=== PATIENT | female | born 1965 | race Caucasian/White ===

== ENCOUNTER 2018-08-29 12:55 | Emergency (ER) | payer BC ==
--- OUTSIDE RECORDS SUMMARY | 2018-08-29 12:58 | XMS REPORT ---
:1965 Author Organization eClinicalWorks Care Team Providers Name Role Phone Amaro Dean Provider Role Unavailable Allergies, Adverse Reactions, Alerts Substance Reaction Event Type Latex Info Not Available Drug Allergy penicillin Info Not Available Drug Allergy Sulfa Info Not Available Drug Allergy Problems Problem Type Condition Code Onset Dates Condition Status Problem Sprain of left rotator cuff S43.422A Active capsule, initial encounter Problem Pain, joint, shoulder, left M25.512 Active Problem Impingement syndrome of left M75.42 Active shoulder Assessment Sprain of left rotator cuff S43.422A Active capsule, initial encounter Assessment Impingement syndrome of left M75.42 Active shoulder Assessment Pain, joint, shoulder, left M25.512 Active Medications Medication Code Code Instructions Start End Status Dosage System Date Date Duloxetine HCl ND 94626270096 30 MG Oral Active TK 1 C PO BID ProAir HFA ND 63306169729 108 (90 Base) Active INL 2 PFS PO MCG/ACT Q 4 TO 6 H Inhalation PRN Fluocinolone ND 14505718798 0.01 % External Active BISHNU EXT TO Acetonide Scalp THE SCALP QD PRF PSORIASIS Tylenol # 3 NDC 0 300/30mg PO Jun 03, Jul 03, Active one tab every 6 hrs 2017 2017 Sharon NDC 0 60 MG Orally Active as directed VESIcare ND 45050660975 5 MG Oral Active TK 1 T PO D Losartan ND 05301664385 50 MG Oral Active TK 1 T PO QD Potassium Results No Known Results Summary Purpose eClinicalWorks Submission
[2018-08-29] MEDS ORDERED: NA CHLORIDE 0.9% 1,000 ML ONE ×2 (14:45→16:26)
[2018-08-29] MEDS ORDERED: ONDANSETRON 4 MG/2 ML VIAL ONE ×3 (14:45→16:35)
[2018-08-29 15:03] LABS: Absolute Lymphocytes (CBC) 0.4 K/uL (0.7-4.9); Absolute Monocytes 0.4 K/uL (0.1-1.3); Absolute Neutrophil 6.7 K/uL (1.8-8.0); Basophils % 1.4 % (0-1.3); Eosinophils % 0.6 % (0-4.4); Hematocrit 41.2 % (36.0-45.0); Lymphocytes % 5.3 % (15.3-44.8); MPV 7.4 fL (7.6-11.3); Monocytes % 5.1 % (3.3-12.3); RBC Red Blood Cell Count 4.64 M/uL (3.86-4.86)
[2018-08-29 15:27] LABS: Albumin 4.2 g/dL (3.4-5.0); Bilirubin Direct 0.1 mg/dL (0-0.2); Bilirubin Total 0.4 mg/dL (0.2-1.0); Potassium 3.8 mmol/L (3.5-5.1)
[2018-08-29 16:14] LABS: Urine White Blood Cell Casts OK
[2018-08-29 16:15] LABS: Blood Morphology Comment NOT SEEN (NOT SEEN); Platelet Estimate ADEQ
[2018-08-29] MEDS ORDERED: DICYCLOMINE HCL 10 MG CAP ONE (16:25)
[2018-08-29] MEDS ORDERED: ACETAMINOPHEN 325 MG TABLET ONE (16:25)
--- NOTE | 2018-08-29 18:15 | EDPHYS ---
Physician Documentation [facility] Name: Morenita Godinez Age: 53 yrs Sex: Female : 1965 Arrival Date: 08/29/2018 Time: 12:57 Bed 20 Private MD: Iveth Santos C ED Physician Adilson Inman HPI: 08/29 14:37 This 53 yrs old Female presents to ER via Ambulatory with complaints of jmm Abdominal Pain, Nausea/Vomiting/Diarrhea. 14:37 The patient presents with abdominal pain. jmm 14:37 Onset: The symptoms/episode began/occurred acutely, last night. jmm 14:37 Associated signs and symptoms: Pertinent positives: nausea and vomiting, diarrhea. The jmm symptoms are described as achy. This is a 53 year old female that presents to the ED with vomiting, diarrhea beginning last night around midnight. Patient complains of abdominal ache. States similar symptoms with multiple family members. . Historical: - Allergies: 13:06 Norvasc; ss 13:06 PENICILLINS; ss 13:06 Sulfa (Sulfonamide Antibiotics); ss 13:06 EGG/POULTRY; ss - PMHx: 13:06 Arthritis; Fibromyalgia; Hypertension; ss - PSHx: 13:06 Hysterectomy; Cholecystectomy; Appendectomy; ss - Immunization history:: Flu vaccine is not up to date. - Social history:: Smoking status: Patient/guardian denies using tobacco. - Ebola Screening: : Patient denies exposure to infectious person Patient denies travel to an Ebola-affected area in the 21 days before illness onset. ROS: 14:37 Constitutional: Negative for fever, chills, and weight loss, Cardiovascular: Negative jmm for chest pain, palpitations, and edema, Respiratory: Negative for shortness of breath, cough, wheezing, and pleuritic chest pain. 14:37 Abdomen/GI: Positive for abdominal pain, vomiting, diarrhea. 14:37 All other systems are negative. Exam: 14:37 Head/Face: atraumatic. Chest/axilla: Normal chest wall appearance and motion. jmm Cardiovascular: Regular rate and rhythm. No edema appreciated Respiratory: Normal respirations, no respiratory distress appreciated 14:37 Back: Normal ROM Skin: General appearance color normal MS/ Extremity: Moves all extremities, no obvious deformities appreciated, no edema noted to the lower extremities Neuro: Awake and alert, normal gait Psych: Behavior is normal, Mood is normal, Patient is cooperative and pleasant 14:37 Constitutional: The patient appears alert, awake, anxious. 14:37 Abdomen/GI: Inspection: abdomen appears normal, Bowel sounds: normal, Palpation: abdomen is soft and non-tender, in all quadrants. Vital Signs: 13:06 BP 131 / 84; Pulse 62; Resp 17; Temp 98.4(TE); Pulse Ox 97% on R/A; Weight 85.28 kg; ss Height 5 ft. 4 in. (162.56 cm); Pain 7/10; 15:00 BP 133 / 75; Pulse 61; Resp 18; Pulse Ox 99% on R/A; Pain 6/10; em 15:45 BP 123 / 65; Pulse 66; Resp 16; Temp 98.2(O); Pulse Ox 99% on R/A; Pain 4/10; em 16:30 BP 138 / 76; Pulse 71; Resp 16; Pulse Ox 100% on R/A; em 17:15 BP 124 / 72; Pulse 68; Resp 16; Pulse Ox 73% on R/A; em 13:06 Body Mass Index 32.27 (85.28 kg, 162.56 cm) ss MDM: 14:20 Patient medically screened. [facility] 18:12 Data reviewed: vital signs, nurses notes. Counseling: I had a detailed discussion with gisselle the patient and/or guardian regarding: the historical points, exam findings, and any diagnostic results supporting the discharge/admit diagnosis, lab results, radiology results, the need for outpatient follow up, to return to the emergency department if symptoms worsen or persist or if there are any questions or concerns that arise at home. ED course: Patient states feeling much better in the ED. I do not suspect an acute intrabdominal process. No abdominal pain on palpation. Multiple family members with similar symptoms. Patient is able to tolerate PO in the ED. . 08/29 14:20 Order name: Basic Metabolic Panel; Complete Time: 15:37 [facility] 08/29 14:20 Order name: CBC with Diff; Complete Time: 16:21 [facility] 08/29 14:20 Order name: Creatinine for Radiology; Complete Time: 15:37 [facility] 08/29 14:20 Order name: Hepatic Function; Complete Time: 15:37 [facility] 08/29 14:20 Order name: Lipase; Complete Time: 15:37 [facility] 08/29 15:28 Order name: CBC Smear Scan; Complete Time: 16:21 [facility] 08/29 14:20 Order name: IV Saline Lock; Complete Time: 14:59 [facility] 08/29 14:20 Order name: Labs collected and sent; Complete Time: 14:59 [facility] 08/29 17:29 Order name: PO challenge; Complete Time: 17:44 jmm Administered Medications: 14:45 Drug: Zofran 4 mg Route: IVP; Site: right antecubital; ss 16:22 Follow up: Response: No adverse reaction em 14:58 Drug: NS 0.9% 1000 ml Route: IV; Rate: 1 bolus; Site: right antecubital; em 16:22 Follow up: IV Status: Completed infusion; IV Intake: 1000ml em 16:31 Drug: Bentyl 20 mg Route: PO; em 17:38 Follow up: Response: No adverse reaction em 16:31 Drug: Tylenol 650 mg Route: PO; em 17:38 Follow up: Response: No adverse reaction; Pain is decreased em 16:31 Drug: NS 0.9% 1000 ml Route: IV; Rate: 1 bolus; Site: right antecubital; em 18:46 Follow up: IV Status: Completed infusion; IV Intake: 1000ml em 16:31 Drug: Zofran 4 mg Route: IVP; Site: right antecubital; em 17:38 Follow up: Response: No adverse reaction; Pain is decreased em Disposition: 08/29/18 18:14 Discharged to Home. Impression: Vomiting, Diarrhea, unspecified. - Condition is Stable. - Discharge Instructions: Food Choices to Help Relieve Diarrhea, Adult, Nausea and Vomiting, Adult. - Prescriptions for Zofran ODT 4 mg Oral tablet,disintegrating - place 2 tablet by TRANSLINGUAL route every 4-6 hours; 20 tablet. Bentyl 20 mg Oral Tablet - take 2 tablet by ORAL route every 6 hours As needed; 40 tablet. - Medication Reconciliation Form, Thank You Letter, Antibiotic Education, Prescription Opioid Use form. - Follow up: Iveth Santos MD; When: 2 - 3 days; Reason: Recheck today's complaints, Continuance of care, Re-evaluation by your physician. Addendum: 09/02/2018 11:04 Co-signature as Attending Physician, Adilson Inman MD I agree with the assessment and c bonilla plan of care. Signatures: Dispatcher [employer] Adilson Agrawal MD MD cha Mickail, Joel, RON PA Yovanny Kitchen, VENEER TAPING MACHINE OPERATOR VENEER TAPING MACHINE OPERATOR Suzanne Macias, MARY RN ss Corrections: (The following items were deleted from the chart) 08/29 18:49 18:14 08/29/2018 18:14 Discharged to Home. Impression: Vomiting; Diarrhea, unspecified. em Condition is Stable. Forms are Medication Reconciliation Form, Thank You Letter, Antibiotic Education, Prescription Opioid Use. Follow up: A Santos; When: 2 - 3 days; Reason: Recheck today's complaints, Continuance of care, Re-evaluation by your physician. gisselle
--- NOTE | 2018-08-29 18:15 | ER ---
Nurse's Notes [facility] Name: Morenita Godinez Age: 53 yrs Sex: Female : 1965 Arrival Date: 08/29/2018 Time: 12:57 Bed 20 Private MD: Iveth Santos C Diagnosis: Vomiting;Diarrhea, unspecified Presentation: 08/29 13:04 Presenting complaint: Patient states: N/V/D that began last night. PT reports that her ss whole family have been dealing with the same issues lately. Denies fever. Transition of care: patient was not received from another setting of care. Onset of symptoms was August 28, 2018. Risk Assessment: Do you want to hurt yourself or someone else? Patient reports no desire to harm self or others. Initial Sepsis Screen: Does the patient meet any 2 criteria? No. Patient's initial sepsis screen is negative. Does the patient have a suspected source of infection? No. Patient's initial sepsis screen is negative. Care prior to arrival: None. 13:04 Method Of Arrival: Ambulatory ss 13:04 Acuity: ARTIE 3 ss Historical: - Allergies: 13:06 Norvasc; ss 13:06 PENICILLINS; ss 13:06 Sulfa (Sulfonamide Antibiotics); ss 13:06 EGG/POULTRY; ss - PMHx: 13:06 Arthritis; Fibromyalgia; Hypertension; ss - PSHx: 13:06 Hysterectomy; Cholecystectomy; Appendectomy; ss - Immunization history:: Flu vaccine is not up to date. - Social history:: Smoking status: Patient/guardian denies using tobacco. - Ebola Screening: : Patient denies exposure to infectious person Patient denies travel to an Ebola-affected area in the 21 days before illness onset. Screenin:35 Abuse screen: Denies threats or abuse. Nutritional screening: No deficits noted. em Tuberculosis screening: No symptoms or risk factors identified. Fall Risk None identified. Assessment: 14:35 General: Appears in no apparent distress. uncomfortable, Behavior is calm, cooperative, em Denies fever. Pain: Complains of pain in abdomen Pain currently is 7 out of 10 on a pain scale. Neuro: Level of Consciousness is awake, alert, obeys commands, Oriented to person, place, time, situation. Cardiovascular: Capillary refill < 3 seconds Patient's skin is warm and dry. Respiratory: Airway is patent Respiratory effort is even, unlabored, Respiratory pattern is regular, symmetrical. GI: Abdomen is round non-distended, Bowel sounds present X 4 quads. Abd is soft X 4 quads Abdomen is tender to palpation X 4 quads. : No signs and/or symptoms were reported regarding the genitourinary system. EENT: No signs and/or symptoms were reported regarding the EENT system. Derm: Skin is intact, is healthy with good turgor, Skin is pink, warm \T\ dry. Musculoskeletal: Range of motion: intact in all extremities. 15:00 General: The previous assessment is accurate, call light remains within reach. Pt also ss c/o diarrhea x 1 day. . 15:45 Reassessment: Patient appears in no apparent distress at this time. Patient and/or em family updated on plan of care and expected duration. Pain level reassessed. Patient is alert, oriented x 3, equal unlabored respirations, skin warm/dry/pink. Patient states feeling better. 16:34 Reassessment: Patient appears in no apparent distress at this time. Patient and/or em family updated on plan of care and expected duration. Pain level reassessed. Patient is alert, oriented x 3, equal unlabored respirations, skin warm/dry/pink. 17:17 Reassessment: Patient appears in no apparent distress at this time. Patient and/or em family updated on plan of care and expected duration. Pain level reassessed. Patient is alert, oriented x 3, equal unlabored respirations, skin warm/dry/pink. Vital Signs: 13:06 BP 131 / 84; Pulse 62; Resp 17; Temp 98.4(TE); Pulse Ox 97% on R/A; Weight 85.28 kg; ss Height 5 ft. 4 in. (162.56 cm); Pain 7/10; 15:00 BP 133 / 75; Pulse 61; Resp 18; Pulse Ox 99% on R/A; Pain 6/10; em 15:45 BP 123 / 65; Pulse 66; Resp 16; Temp 98.2(O); Pulse Ox 99% on R/A; Pain 4/10; em 16:30 BP 138 / 76; Pulse 71; Resp 16; Pulse Ox 100% on R/A; em 17:15 BP 124 / 72; Pulse 68; Resp 16; Pulse Ox 73% on R/A; em 13:06 Body Mass Index 32.27 (85.28 kg, 162.56 cm) ED Course: 12:57 Patient arrived in ED. sb2 12:57 Iveth Santos MD is Private Physician. sb2 13:04 Triage completed. ss 13:06 Arm band placed on right wrist. ss 14:10 Lance Chahal PA is PHCP. jmm 14:10 Adilson Inman MD is Attending Physician. jmm 14:34 Yovanny Spears LVN is Primary Nurse. em 14:35 Patient has correct armband on for positive identification. Placed in gown. Bed in low em position. Call light in reach. Side rails up X2. professor of biology on. Pulse ox on. 14:50 Initial lab(s) drawn, by me, sent to lab. Inserted saline lock: 20 gauge in right em antecubital area, using aseptic technique. Blood collected. 17:54 No provider procedures requiring assistance completed. em 18:14 Iveth Santos MD is Referral Physician. jmm 18:46 IV discontinued, intact, bleeding controlled, No redness/swelling at site. Pressure em dressing applied. Administered Medications: 14:45 Drug: Zofran 4 mg Route: IVP; Site: right antecubital; ss 16:22 Follow up: Response: No adverse reaction em 14:58 Drug: NS 0.9% 1000 ml Route: IV; Rate: 1 bolus; Site: right antecubital; em 16:22 Follow up: IV Status: Completed infusion; IV Intake: 1000ml em 16:31 Drug: Bentyl 20 mg Route: PO; em 17:38 Follow up: Response: No adverse reaction em 16:31 Drug: Tylenol 650 mg Route: PO; em 17:38 Follow up: Response: No adverse reaction; Pain is decreased em 16:31 Drug: NS 0.9% 1000 ml Route: IV; Rate: 1 bolus; Site: right antecubital; em 18:46 Follow up: IV Status: Completed infusion; IV Intake: 1000ml em 16:31 Drug: Zofran 4 mg Route: IVP; Site: right antecubital; em 17:38 Follow up: Response: No adverse reaction; Pain is decreased em Intake: 16:22 IV: 1000ml; Total: 1000ml. em 18:46 IV: 1000ml; Total: 2000ml. em Outcome: 18:14 Discharge ordered by MD. pitts 18:46 Discharged to home ambulatory. em 18:46 Condition: good 18:46 Discharge instructions given to patient, Instructed on discharge instructions, follow up and referral plans. medication usage, Demonstrated understanding of instructions, follow-up care, medications, Prescriptions given X 2. 18:49 Patient left the ED. em Signatures: Lance Chahal PA PA jmm Munoz, Edgar, RELAY MOTORMAN RELAY MOTORMAN em Suzanne Fitzgerald, MARY RN ss Janee Limon sb2 Corrections: (The following items were deleted from the chart) 17:54 17:54 IV discontinued, intact, bleeding controlled, No redness/swelling at site. em Pressure dressing applied, em 17:54 17:54 No provider procedures requiring assistance completed. em em
[2018-08-29 19:02] VITALS: TEMP 98.2
[2018-08-29 19:05] VITALS: BP 124/72; O2SAT 73
== END 2018-08-29 18:49 | disposition home or self-care (01) ==
LOC: ER 12:55
DX: R11.10 Vomiting, unspecified (principal); R19.7 Diarrhea, unspecified
CPT/HCPCS: 36415; 80048; 80076; 83690; 85025; 96361; 96374; 99284; J2405; J7030

== ENCOUNTER 2019-03-08 15:02 | Emergency (ER) | payer BC ==
--- OUTSIDE RECORDS SUMMARY | 2019-03-08 15:04 | XMS REPORT ---
:1965 Author Organization eClinicalWorks Care Team Providers Name Role Phone AmaroDean Provider Role Unavailable Allergies No Known Allergies Problems Problem Type Condition Code Onset Dates Condition Status Problem Sprain of left rotator cuff S43.422A Active capsule, initial encounter Problem Pain, joint, shoulder, left M25.512 Active Problem Impingement syndrome of left M75.42 Active shoulder Medications No Known Medications Results No Known Results Summary Purpose [employer] Submission
--- OUTSIDE RECORDS SUMMARY | 2019-03-08 15:04 | XMS REPORT ---
:1965 Author Organization eClinicalWorks Care Team Providers Name Role Phone Dean Amaro Provider Role Unavailable Allergies, Adverse Reactions, Alerts Substance Reaction Event Type Latex Info Not Available Drug Allergy penicillin Info Not Available Drug Allergy Sulfa Info Not Available Drug Allergy Problems Problem Type Condition Code Onset Dates Condition Status Assessment Right sciatic nerve pain M54.31 Active Problem Pain in joint of right knee M25.561 Active Problem Pain, joint, shoulder, left M25.512 Active Problem Right sciatic nerve pain M54.31 Active Assessment Pain in joint of right knee M25.561 Active Problem Impingement syndrome of left M75.42 Active shoulder Problem Sprain of left rotator cuff S43.422A Active capsule, initial encounter Medications Medication Code Code Instructions Start End Status Dosage System Date Date Duloxetine HCl [facility] 89625565315 30 MG Oral Active TK 1 C PO BID Sharon ND 0 60 MG Orally Active as directed Otezla [facility] [address]-52 Active not defined ProAir HFA [facility] 50909918606 108 (90 Base) Active INL 2 PFS MCG/ACT PO Q 4 TO 6 Inhalation H PRN VESIcare [facility] 55885092245 5 MG Oral Active TK 1 T PO D Valsartan [facility] [address]-53 Active not defined Fluocinolone [facility] 73597928422 0.01 % External Active BISHNU EXT TO Acetonide Scalp THE SCALP QD PRF PSORIASIS Estradiol [facility] [address]-12 Active not defined Losartan [facility] 09997502477 50 MG Oral Active TK 1 T PO Potassium QD Results Name Result Date Reference Range Unit Abnormality Flag X-RAY EXAM KNEE STANDING VIEW (25926) Summary Purpose eClinicalWorks Submission
--- OUTSIDE RECORDS SUMMARY | 2019-03-08 15:04 | XMS REPORT ---
:1965 Author Organization eClinicalWorks Care Team Providers Name Role Phone AmaroDaen Provider Role Unavailable Allergies No Known Allergies Problems Problem Type Condition Code Onset Dates Condition Status Problem Sprain of left rotator cuff S43.422A Active capsule, initial encounter Problem Pain, joint, shoulder, left M25.512 Active Problem Impingement syndrome of left M75.42 Active shoulder Medications No Known Medications Results No Known Results Summary Purpose [employer] Submission
--- OUTSIDE RECORDS SUMMARY | 2019-03-08 15:04 | XMS REPORT ---
[...] Dosage System Date Date Duloxetine HCl ND 15078536191 30 MG Oral Active TK 1 C PO BID ProAir HFA ND 37781900118 108 (90 Base) Active INL 2 PFS PO MCG/ACT Q 4 TO 6 H Inhalation PRN Fluocinolone ND 47657257396 0.01 % External Active BISHNU EXT TO Acetonide Scalp THE SCALP QD PRF PSORIASIS Tylenol # 3 NDC 0 300/30mg PO Jun 03, Jul 03, Active one tab every 6 hrs 2017 2017 Sharon NDC 0 60 MG Orally Active as directed VESIcare ND 87383287582 5 MG Oral Active TK 1 T PO D Losartan ND 71723688868 50 MG Oral Active TK 1 T PO QD Potassium Results No Known Results Summary Purpose eClinicalWorks Submission
[2019-03-08 15:52] LABS: Absolute Lymphocytes (CBC) 1.8 K/uL (0.7-4.9); Basophils % 0.7 % (0-1.3); Eosinophils % 1.8 % (0-4.4); Hematocrit 44.3 % (36.0-45.0); Lymphocytes % 25.1 % (15.3-44.8); MPV 7.4 fL (7.6-11.3); Monocytes % 9.6 % (3.3-12.3); RBC Red Blood Cell Count 4.98 M/uL (3.86-4.86)
[2019-03-08] MEDS ORDERED: METHYLPREDNISOLONE 125 MG INJ ONE (16:02)
[2019-03-08] MEDS ORDERED: MAGNE/ALUM HYDROXD 30 ML UCUP ONE (16:02)
[2019-03-08] MEDS ORDERED: LIDOCAINE VISCOUS 2% SOLN 15 ML UDC ONE (16:03)
[2019-03-08] MEDS ORDERED: LORAZEPAM 1 MG TABLET ONE (16:03)
[2019-03-08] MEDS ORDERED: DIPHENHYDRAMINE 50 MG/ML VIAL ONE (16:03)
[2019-03-08] MEDS ORDERED: FAMOTIDINE 20 MG/2 ML VIAL IV ONE (16:03)
[2019-03-08 16:04] LABS: Potassium 3.9 mmol/L (3.5-5.1)
[2019-03-08] MEDS ORDERED: IPRATROPIUM BROM 0.5MG/2.5ML ONE (16:29)
[2019-03-08] MEDS ORDERED: ALBUTEROL 2.5 MG/3 ML NEB SOL ONE (16:29)
--- NOTE | 2019-03-08 16:33 | RAD REPORT ---
EXAM DESCRIPTION: RAD - Chest Single View - 03/08/2019 4:04 pm CLINICAL HISTORY: Chest pain COMPARISON: December 2013 TECHNIQUE: AP portable chest image was obtained 1559 hours . FINDINGS: Lung volumes are low. No pulmonary edema or focal lung parenchymal process. Interstitial p attern is not clearly different when allowing for shallow inspiration. Heart and vasculature are normal. No measurable pleural effusion and no pneumothorax. No acute bony abnormality seen. No acute aortic findings suspected. IMPRESSION: No acute cardiopulmonary process.
--- NOTE | 2019-03-08 16:36 | ER ---
Nurse's Notes [facility] Name: Morenita Godinez Age: 53 yrs Sex: Female : 1965 Arrival Date: 03/08/2019 Time: 15:06 Bed 5 Private MD: Iveth Santos C Diagnosis: Acute pharyngitis Presentation: 03/08 15:16 Presenting complaint: Patient states: About an hour ago I choked on some water and now la1 every time I try to talk or swallow it makes me cough/gag, Pt unable to speak in triage, is writing on paper that she has to lean forward to help. Transition of care: patient was not received from another setting of care. Onset of symptoms was March 08, 2019. Risk Assessment: Do you want to hurt yourself or someone else? Patient reports no desire to harm self or others. Initial Sepsis Screen: Does the patient meet any 2 criteria? No. Patient's initial sepsis screen is negative. Does the patient have a suspected source of infection? No. Patient's initial sepsis screen is negative. Care prior to arrival: None. 15:16 Method Of Arrival: Ambulatory la1 15:16 Acuity: ARTIE 2 la1 Historical: - Allergies: 15:20 EGG/POULTRY; la1 15:20 Norvasc; la1 15:20 PENICILLINS; la1 15:20 Sulfa (Sulfonamide Antibiotics); la1 15:20 Latex, Natural Rubber; la1 15:20 milk; la1 - PMHx: 15:20 Arthritis; Fibromyalgia; Hypertension; Asthma; la1 - Immunization history:: Adult Immunizations up to date. - Social history:: Smoking status: Patient/guardian denies using tobacco, Patient/guardian denies using alcohol, street drugs, The patient lives with family. - Ebola Screening: : No symptoms or risks identified at this time. - Family history:: not pertinent. Screenin:50 Abuse screen: Denies threats or abuse. Denies injuries from another. Nutritional aj screening: No deficits noted. Tuberculosis screening: No symptoms or risk factors identified. Fall Risk None identified. Assessment: 13:50 General: Appears in no apparent distress. uncomfortable, Behavior is anxious. Pain: aj Denies pain. Neuro: Level of Consciousness is awake, alert, obeys commands, Oriented to person, place, time, situation, Appropriate for age. Respiratory: Airway is patent Respiratory effort is even, unlabored, Respiratory pattern is regular, symmetrical, Breath sounds are clear bilaterally. EENT: Throat is clear. Derm: Skin is intact, is healthy with good turgor, Skin is pink, warm \T\ dry. normal. 16:53 Reassessment: Patient appears in no apparent distress at this time. No changes from aj previously documented assessment. Patient and/or family updated on plan of care and expected duration. Pain level reassessed. Patient is alert, oriented x 3, equal unlabored respirations, skin warm/dry/pink. Patient noted to be sleeping with even unlabored respirations upon entering the room. Family at bedside. Vital Signs: 15:20 BP 134 / 74; Pulse 84; Resp 16; Temp 98.6; Pulse Ox 98% on R/A; Weight 88 kg; Height 5 la1 ft. 4 in. (162.56 cm); 16:50 BP 131 / 75; Pulse 72; Resp 18; Pulse Ox 99% on R/A; aj 15:20 Body Mass Index 33.30 (88.00 kg, 162.56 cm) la1 ED Course: 13:50 Patient has correct armband on for positive identification. Bed in low position. Side aj rails up X 1. Adult w/ patient. 15:06 Patient arrived in ED. mr 15:06 Iveth Santos MD is Private Physician. mr 15:19 Triage completed. la1 15:20 Arm band placed on left wrist. la1 15:25 Daniel Meier, MARY is Primary Nurse. bp 15:37 Chacha Tamayo MD is Attending Physician. ma2 15:50 Inserted saline lock: 20 gauge in right antecubital area, using aseptic technique. aj Blood collected. 16:05 XRAY Chest (1 view) In Process Unspecified. EDMS 16:14 EKG done, by ED staff, reviewed by Chacha Tamayo MD. jp3 16:50 No provider procedures requiring assistance completed. IV discontinued, intact, aj bleeding controlled, No redness/swelling at site. Pressure dressing applied. Administered Medications: 16:00 Drug: GI Cocktail without - (Maalox Suspension 30 ml, Lidocaine Liquid 2 % 15 aj ml) Route: PO; 16:52 Follow up: Response: Anxiety decreased aj 16:00 Drug: Ativan 2 mg Route: PO; aj 16:52 Follow up: Response: No adverse reaction; Anxiety decreased aj 16:01 Drug: Benadryl 50 mg Route: IVP; Site: right antecubital; aj 16:53 Follow up: Response: Anxiety decreased aj 16:01 Drug: MethylPrednisoLONE 125 mg Route: IVP; Site: right antecubital; aj 16:53 Follow up: Response: Anxiety decreased aj 16:01 Drug: Pepcid 20 mg Route: IVP; Site: right antecubital; aj 16:53 Follow up: Response: Anxiety decreased aj 16:17 Drug: Albuterol - atroVENT (3:1) (2.5 mg - 0.5 mg) 3 ml Route: Nebulizer; aj 16:52 Follow up: Response: No adverse reaction aj Outcome: 16:35 Discharge ordered by . lauryn 16:52 Discharged to home ambulatory. aj 16:52 Condition: good 16:52 Discharge instructions given to patient, family, Instructed on discharge instructions, follow up and referral plans. medication usage, Demonstrated understanding of instructions, follow-up care, medications, Prescriptions given X 2. 16:54 Patient left the ED. aj Signatures: Dispatcher [employer] EDYesica Peña RN RN aj Rivera, Mary mr Attema, Lee, RN RN la1 Peltier, Brian, RN RN bp Alzahri, Mohammad, MD MD ma2 Lex Schultz jp3
--- NOTE | 2019-03-08 16:36 | EDPHYS ---
Physician Documentation [facility] Name: Morenita Godinez Age: 53 yrs Sex: Female : 1965 Arrival Date: 03/08/2019 Time: 15:06 Bed 5 Private MD: Iveth Santos C ED Physician Chacha Tamayo HPI: 03/08 15:54 This 53 yrs old Female presents to ER via Ambulatory with complaints of ma2 Cough, Sore Throat. 15:54 The patient or guardian reports cough. Onset: The symptoms/episode began/occurred ma2 suddenly, 1 day(s) ago. Severity of symptoms: At their worst the symptoms were in the emergency department the symptoms are unchanged. Associated signs and symptoms: Pertinent negatives:. The patient has not experienced similar symptoms in the past. Historical: - Allergies: 15:20 EGG/POULTRY; la1 15:20 Norvasc; la1 15:20 PENICILLINS; la1 15:20 Sulfa (Sulfonamide Antibiotics); la1 15:20 Latex, Natural Rubber; la1 15:20 milk; la1 - PMHx: 15:20 Arthritis; Fibromyalgia; Hypertension; Asthma; la1 - Immunization history:: Adult Immunizations up to date. - Social history:: Smoking status: Patient/guardian denies using tobacco, Patient/guardian denies using alcohol, street drugs, The patient lives with family. - Ebola Screening: : No symptoms or risks identified at this time. - Family history:: not pertinent. ROS: 15:54 All other systems are negative. ma2 Exam: 15:54 Constitutional: This is a well developed, well nourished patient who is awake, alert, ma2 and in no acute distress. Head/Face: Normocephalic, atraumatic. Eyes: Pupils equal round and reactive to light, extra-ocular motions intact. Lids and lashes normal. Conjunctiva and sclera are non-icteric and not injected. Cornea within normal limits. Periorbital areas with no swelling, redness, or edema. ENT: Nares patent. No nasal discharge, no septal abnormalities noted. Tympanic membranes are normal and external auditory canals are clear. Oropharynx with no redness, swelling, or masses, exudates, or evidence of obstruction, uvula midline. Mucous membranes moist. Neck: Trachea midline, no thyromegaly or masses palpated, and no cervical lymphadenopathy. Supple, full range of motion without nuchal rigidity, or vertebral point tenderness. No Meningismus. Chest/axilla: Normal chest wall appearance and motion. Nontender with no deformity. No lesions are appreciated. Cardiovascular: Regular rate and rhythm with a normal S1 and S2. No gallops, murmurs, or rubs. Normal PMI, no JVD. No pulse deficits. Respiratory: Lungs have equal breath sounds bilaterally, clear to auscultation and percussion. No rales, rhonchi or wheezes noted. No increased work of breathing, no retractions or nasal flaring. Abdomen/GI: Soft, non-tender, with normal bowel sounds. No distension or tympany. No guarding or rebound. No evidence of tenderness throughout. MS/ Extremity: Pulses equal, no cyanosis. Neurovascular intact. Full, normal range of motion. Vital Signs: 15:20 BP 134 / 74; Pulse 84; Resp 16; Temp 98.6; Pulse Ox 98% on R/A; Weight 88 kg; Height 5 la1 ft. 4 in. (162.56 cm); 16:50 BP 131 / 75; Pulse 72; Resp 18; Pulse Ox 99% on R/A; aj 15:20 Body Mass Index 33.30 (88.00 kg, 162.56 cm) la1 MDM: 15:37 Patient medically screened. me2 15:54 Differential Diagnosis: Bronchitis Influenza Upper Respiratory Infection. [facility] 16:34 Data reviewed: vital signs, nurses notes. Counseling: I had a detailed discussion with ma2 the patient and/or guardian regarding: the historical points, exam findings, and any diagnostic results supporting the discharge/admit diagnosis, the presence of at least one elevated blood pressure reading (>120/80) during this emergency department visit, the need for outpatient follow up. Response to treatment: the patient's symptoms have resolved after treatment. 03/08 15:38 Order name: Basic Metabolic Panel [facility] 03/08 15:38 Order name: CBC with Diff [facility] 03/08 15:38 Order name: XRAY Chest (1 view) [facility] 03/08 15:38 Order name: EKG; Complete Time: 15:38 [facility] 03/08 15:38 Order name: Cardiac monitoring; Complete Time: 16:01 [facility] 03/08 15:38 Order name: EKG - Nurse/Tech; Complete Time: 16:15 [facility] 03/08 15:38 Order name: IV Saline Lock; Complete Time: 16:02 [facility] 03/08 15:38 Order name: Labs collected and sent; Complete Time: 16:02 [facility] 03/08 15:38 Order name: O2 Per Protocol; Complete Time: 16:02 [facility] 03/08 15:38 Order name: O2 Sat Monitoring; Complete Time: 16:02 me2 Administered Medications: 16:00 Drug: GI Cocktail without - (Maalox Suspension 30 ml, Lidocaine Liquid 2 % 15 aj ml) Route: PO; 16:52 Follow up: Response: Anxiety decreased aj 16:00 Drug: Ativan 2 mg Route: PO; aj 16:52 Follow up: Response: No adverse reaction; Anxiety decreased aj 16:01 Drug: Benadryl 50 mg Route: IVP; Site: right antecubital; aj 16:53 Follow up: Response: Anxiety decreased aj 16:01 Drug: MethylPrednisoLONE 125 mg Route: IVP; Site: right antecubital; aj 16:53 Follow up: Response: Anxiety decreased aj 16:01 Drug: Pepcid 20 mg Route: IVP; Site: right antecubital; aj 16:53 Follow up: Response: Anxiety decreased aj 16:17 Drug: Albuterol - atroVENT (3:1) (2.5 mg - 0.5 mg) 3 ml Route: Nebulizer; aj 16:52 Follow up: Response: No adverse reaction aj Disposition: 03/08/19 16:35 Discharged to Home. Impression: Acute pharyngitis. - Condition is Stable. - Discharge Instructions: Pharyngitis. - Prescriptions for Tylenol- Codeine #3 300-30 mg Oral Tablet - take 2 tablet by ORAL route every 6 hours As needed; 30 tablet. Cyclobenzaprine 10 mg Oral Tablet - take 1 tablet by ORAL route every 8 hours As needed; 30 tablet. - Medication Reconciliation Form, Thank You Letter, Antibiotic Education, Prescription Opioid Use form. - Follow up: Private Physician; When: Tomorrow; Reason: Continuance of care. Signatures: Dispatcher [facility] EDYesica Peña RN RN aj Attema, Lee, RN RN la1 Chacha Tamayo MD MD ma2 Corrections: (The following items were deleted from the chart) 16:54 16:35 03/08/2019 16:35 Discharged to Home. Impression: Acute pharyngitis. Condition is aj Stable. Forms are Medication Reconciliation Form, Thank You Letter, Antibiotic Education, Prescription Opioid Use. Follow up: Private Physician; When: Tomorrow; Reason: Continuance of care. ma2
[2019-03-08 17:04] VITALS: TEMP 98.6
[2019-03-08 17:05] VITALS: BP 131/75; O2SAT 99
--- NOTE | 2019-03-09 12:53 | EKG ---
Test Date: 2019-03-08 Test Time: 16:10:53 Engineering Recruiter: MAURI MEASUREMENT RESULTS: Intervals: Rate: 75 CO: 160 QRSD: 86 QT: 412 QTc: 460 [place]: P: 71 CO: 160 QRS: 44 T: 54 INTERPRETIVE STATEMENTS: Normal sinus rhythm Normal ECG Compared to ECG 01/22/2014 07:22:03 Sinus bradycardia no longer present Electronically Signed On 03-09-19 12:49:51 CDT by Kali Olivares
== END 2019-03-08 16:54 | disposition home or self-care (01) ==
LOC: ER 15:02
DX: J02.9 Acute pharyngitis, unspecified (principal); R05 Cough; I10 Essential (primary) hypertension; J45.909 Unspecified asthma, uncomplicated; Z88.0 Allergy status to penicillin; Z88.2 Allergy status to sulfonamides; Z91.012 Allergy to eggs; Z91.011 Allergy to milk products
CPT/HCPCS: 36415; 71045; 80048; 85025; 93005; 94640; 96374; 96375; 99284; J2930